=== PATIENT | female | born 1955 | race Asian ===

== ENCOUNTER → 2019-12-20 10:26 | Outpatient (CLI) | payer MEDICARE, BC, SELFPAY ==
--- NOTE | 2019-12-20 | DI.CT.S_ITS ---
PROCEDURE: CT UE RT WO CON INDICATIONS: Colles' fracture of right radius, initial encounte TECHNIQUE: Noncontrast 1 mm axial sections acquired through the carpal bones, with coronal and sagittal reformats. COMPARISON: [facility] [place] Adams, CR, XR WRIST 3+ VIEWS RIGHT, 12/13/2019, 11:15. [facility] [place], CR, XR WRIST 3+ VIEWS RIGHT, 11/29/2019, 13:48. FINDINGS: Image quality: Excellent. Bones: Diffuse osteopenic appearance. Comminuted fracture of the distal radial metaphysis with extension to the articular surface. Prominent displaced and rotated fracture fragment seen on image 51/4 measuring 7 mm. There is articular surface incongruity with diastasis measuring up to 4 mm. There is minimal articular surface step-off probably 2 mm or less. Ulnar styloid appears intact. Distal radioulnar joint degeneration. Probable loss of the normal volar angulation of the distal radial articular surface is better appreciated on the comparison radiographs. Soft tissues: Visualized flexor and extensor tendons grossly unremarkable. Associated soft tissue swelling. IMPRESSION: Comminuted distal radial metaphyseal fracture as detailed above Dictated by: Kishor Salomon M.D. on 12/21/2019 at 8:05 Approved by: Kishor Salomon M.D. on 12/21/2019 at 8:11
== END ==
PROVIDERS: PCP Family Medicine; Referring Provider Orthopaedic Surgery Adult Reconstructive Orthopaedic Surgery; Visit Provider Orthopaedic Surgery Adult Reconstructive Orthopaedic Surgery
DX: S52.531A Colles' fracture of right radius, initial encounter for closed fracture (principal); X58.XXXA Exposure to other specified factors, initial encounter
CPT/HCPCS: 73200

== ENCOUNTER → 2023-11-16 08:55 | Outpatient (CLI) | payer MEDICARE, BC, SELFPAY ==
[2023-11-16 19:52] LABS: Alanine Aminotransferase 21 IU/L (<35); Albumin 4.1 g/dL (3.5-5.0); Albumin Globulin Ratio 1.4 (1.0-2.8); Alkaline Phosphatase 72 U/L (38-126); Aspartate Aminotransferase 29 IU/L (14-36); BUN Creatinine Ratio 27.5 (6-22); Bilirubin Total 0.7 mg/dL (0.2-1.3); Blood Urea Nitrogen 14 mg/dL (7-17); Calcium 9.3 mg/dL (8.4-10.2); Carbon Dioxide 26 mmol/L (22-32); Chloride 99 mmol/L (98-107); Cholesterol 245 mg/dL (140-199); Estimated Glomerular Filt Rate > 60 mL/min (>60); Globulin 2.9 g/dL (1.7-4.1); Glucose 97 mg/dL (80-110); HDL Cholesterol 69 mg/dL (40-60); HEMOLYSIS < 15 (0-50); LDL Cholesterol Calculated 160 mg/dL (<100); Potassium 4.1 mmol/L (3.4-5.1); Sodium 132 mmol/L (137-145); Triglycerides 81 mg/dL (35-150)
== END ==
PROVIDERS: PCP Family Medicine; Visit Provider Family Medicine
DX: Z13.1 Encounter for screening for diabetes mellitus (principal); Z13.6 Encounter for screening for cardiovascular disorders; Z13.0 Encounter for screening for diseases of the blood and blood-forming organs and certain disorders involving the immune mechanism
CPT/HCPCS: 80053; 80061

== ENCOUNTER → 2023-11-30 14:15 | Outpatient (CLI) | payer MEDICARE, BC, SELFPAY ==
--- NOTE | 2023-11-30 14:18 | DI.RAD.S_ITS ---
Bone Density Report Name: OLGA BYRD Age: 68 Sex: Female Ethnicity: Date of : 1955 Indication: postmenopausal; screening for osteoporosis; Referring Provider: BHARATI GRANADOS Study: Bone densitometry was performed. Exam Date: November 30, 2023 Accession number: [id number] Bone Density: Region BMD T-score Z-score Classification AP Spine(L1-L4) 0.769 -2.5 -0.4 Osteoporosis Femoral Neck (Left) 0.539 -2.8 -1.0 Osteoporosis Total Hip (Left) 0.674 -2.2 -0.7 Osteopenia Femoral Neck (Right) 0.473 -3.4 -1.6 Osteoporosis Total Hip (Right) 0.617 -2.7 -1.1 Osteoporosis Total Hip Mean 0.646 -2.5 -0.9 Osteopenia World Health Organization criteria for BMD impression classify patients as: Normal (T-score at or above -1.0), Osteopenia (T-score between -1.0 and -2.5), or Osteoporosis (T-score at or below -2.5). 10-year Fracture Risk: FRAX not reported because: Some T-score for Spine Total or Hip Total or Femoral Neck at or below -2.5 Impression: The patient has osteoporosis, based on the Right Femoral Neck T-score. Discussion: INCREASED RISK OF FRACTURE. BONE DENSITY IS UNDESIRABLY LOW AT ONE OR MORE SKELETAL SITES, CONSISTENT WITH POSTMENOPAUSAL OSTEOPOROSIS. This patient's lowest T-score meets the World Health Organization's (WHO) criteria for osteoporosis at one or more sites (T-score -2.5 or below). In untreated patients, the risk of osteoporotic fracture increases approximately two-fold for each 1.0 SD decrease in T-score. Low bone density is not the only risk factor for fracture; also consider factors such as patient's age, frailty or poor health, risk of falling, risk of injury, previous osteoporotic fracture, family history of osteoporosis, cigarette smoking, low body weight, etc. Not everyone with low bone mineral density has osteoporosis; osteomalacia and other metabolic bone disorders should also be considered. Patients who have osteoporosis should be evaluated for specific diseases and conditions (secondary causes) that may cause or contribute to bone loss. The [place] Association [employer] Clinical Endocrinologists (AACE) and National Osteoporosis Foundation (NOF) recommend pharmacologic intervention for all postmenopausal women whose T-score is in this range. The patient should follow a healthful lifestyle (good nutrition with adequate calcium and vitamin D, and appropriate weight-bearing exercise). Follow-Up: Consider a repeat BMD and Vertebral Fracture Assessment (VFA) exam in 2 years or sooner if medically necessary, to reassess this patient's status. Reported by: MICHELLE PONCE M.D. on 11/30/2023 2:43:00 PM.
--- NOTE | 2023-11-30 14:18 | DI.MG.S_ITS ---
BILATERAL DIGITAL SCREENING MAMMOGRAM 3D/2D WITH CAD: 11/30/2023 CLINICAL: Routine screening. Comparison is made to exams dated: 12/29/2018 mammogram, 03/03/2013 mammogram, and 02/05/2012 mammogram - [facility]. Both breasts are extremely dense, which lowers the sensitivity of mammography (category d />75% glandular tissue). Current study was also evaluated with a Computer Aided Detection (CAD) system. No significant masses, calcifications, or other findings are seen in either breast. There has been no significant interval change. IMPRESSION: NEGATIVE There is no mammographic evidence of malignancy. A 1 year screening mammogram is recommended. Based on the Tyrer Cuzick model (a risk assessment model) the patient's lifetime risk is 12.7% and her 10 year risk is 8.1%. According to the ACR, ACS, and NCCN guidelines, an annual breast MRI exam along with mammogram is recommended if the patient's lifetime risk is 20% or greater. This exam was interpreted at Station ID: [id number]. NOTE: For mammograms, a report in lay terms will be sent to the patient. Approximately 15% of breast malignancies will not be visualized mammographically. In the management of a palpable breast mass, a negative mammogram must not discourage biopsy of a clinically suspicious lesion. Electronically Signed By: Clinton fregoso/elpidio:11/30/2023 19:08:01 letter sent: Normal Exam ACR BI-RADS Category 1: Negative [id number]
== END ==
PROVIDERS: PCP Family Medicine; Referring Provider Family Medicine; Visit Provider Family Medicine
DX: R92.343 Mammographic extreme density, bilateral breasts (principal); Z12.31 Encounter for screening mammogram for malignant neoplasm of breast; M81.0 Age-related osteoporosis without current pathological fracture; Z78.0 Asymptomatic menopausal state
CPT/HCPCS: 77063; 77067; 77080

== ENCOUNTER → 2023-12-16 11:58 | Outpatient (CLI) | payer MEDICARE, BC, SELFPAY ==
[2023-12-16 19:10] LABS: Add Manual Diff / Slide Review NO; Basophils Absolute Auto 0 /uL (0-100); Basophils Percent Auto 0.4 % (0-2); Eosinophils Absolute Auto 0 /uL (0-450); Eosinophils Percent Auto 0.9 % (2-4); Hematocrit 43.5 % (36-46); Hemoglobin 14.7 g/dL (12.0-16.0); Lymphocytes Absolute Auto 900 /uL (1100-4500); Lymphocytes Percent Auto 20.7 % (25-40); Mean Corpuscular HGB Conc 33.8 % (30-36); Mean Corpuscular Hemoglobin 29.9 PG (26-34); Mean Corpuscular Volume 88.5 fL (80-100); Monocytes Absolute Auto 300 /uL (0-900); Neutrophils Absolute Auto 3200 /uL (1500-7000); Platelet Count 222 X10^3/uL (150-400); Red Blood Cell Count 4.92 X10^6/uL (4.0-5.2); Red Cell Distribution Width 13.1 % (11.6-14.8); White Blood Cell Count 4.6 X10^3/uL (4.5-11.0)
[2023-12-16 19:18] LABS: BUN Creatinine Ratio 30.4 (6-22); Blood Urea Nitrogen 14 mg/dL (7-17); Calcium 9.7 mg/dL (8.4-10.2); Carbon Dioxide 30 mmol/L (22-32); Chloride 97 mmol/L (98-107); Estimated Glomerular Filt Rate > 60 mL/min (>60); Glucose 83 mg/dL (80-110); HEMOLYSIS 15 (0-50); Potassium 3.8 mmol/L (3.4-5.1); Sodium 135 mmol/L (137-145)
[2023-12-16 19:40] LABS: TSH w/ Reflex to FT4 3.44 uIU/mL (0.47-4.68)
[2023-12-16 19:59] LABS: Vitamin D 25 Hydroxy (D3) 22.5 ng/mL (30.0-100.0)
== END ==
PROVIDERS: PCP Family Medicine; Visit Provider Family Medicine
DX: E87.1 Hypo-osmolality and hyponatremia (principal); M81.0 Age-related osteoporosis without current pathological fracture; R03.0 Elevated blood-pressure reading, without diagnosis of hypertension
CPT/HCPCS: 80048; 82306; 84443; 85025

== ENCOUNTER → 2024-01-04 10:27 | Outpatient (CLI) | payer MEDICARE, BC, SELFPAY ==
--- NOTE | 2024-01-04 10:28 | DI.US.S_ITS ---
PROCEDURE: US ABD AORTA ANEURYSM SCREEN INDICATIONS: FAMILY HISTORY OF AORTIC ANEURYSM TECHNIQUE: Real time scanning was performed of the aorta and iliac arteries, with image documentation. COMPARISON: None. FINDINGS: Aorta: Proximal aortic diameter measures 2.0 cm. Mid-aorta measures 1.5 cm. Distal aortic diameter is 1.3 cm. Iliac arteries: Right common iliac artery measures 1.0 cm. Left common iliac artery measures 1.0 cm. IMPRESSION: Unremarkable ultrasound of the abdominal aorta Approved by: Kevin Dodd M.D. on 01/04/2024 at 19:41
== END ==
LOC: US 10:28
PROVIDERS: PCP Family Medicine; Referring Provider Family Medicine; Visit Provider Family Medicine
DX: Z13.6 Encounter for screening for cardiovascular disorders (principal); Z82.49 Family history of ischemic heart disease and other diseases of the circulatory system
CPT/HCPCS: 76706

== ENCOUNTER 2024-02-04 08:04 | Day surgery (SDC) | payer MEDICARE, BC, SELFPAY ==
[2024-02-04] MEDS: LACTATED RINGERS 1,000 ML 100 ML IV (08:15)
[2024-02-04 08:20] VITALS: BP 150/88; PULSE 89; RESP 16; TEMP 36.8; O2SAT 98
--- NOTE | 2024-02-04 08:45 | PM.HP.1 ---
History of Present Illness History of Present Illness Date Patient Seen: 02/04/24 Time Patient Seen: 08:45 Chief complaint: SDC Narrative: Vanessa is a 68-year-old woman who presents for colonoscopy. Her last colonoscopy was over 10 years ago and was normal. No family history of colon cancer. [facility] Medical History (Updated 12/13/23 @ 16:25 by Jessenia Collier MD) History of wrist fracture Wears glasses Osteopenia (~2019) Fractures (~2019) Measles (~1959) Chicken pox (~1954) Glaucoma (~2004) Heavy menstrual period (~1996) Heart murmur (~1974) Surgical History (Updated 10/07/23 @ 20:03 by Sue Chao) Anesthesia [place] teeth removed (~1968) Family History (Updated 10/07/23 @ 20:08 by Sue Chao) Father History of heart disease Hyperlipidemia Stroke Mother Lung disease Sister Hyperlipidemia Grandfather Cancer Grandmother Cancer Grandfather Stroke Alcohol abuse Grandmother Cancer Social History Smoking Status: Never smoker additional social history: etoh: 3 glasses /week tob: none lives alone since mom Moved in dec 2009 from [place] -- was getting regular paps until that time [employer]-she is 3rd generation [place] retired for 1 month: worked for [employer] FHX: no osteoporosis FHX: both parents have dad and uncle and GF -- STROKES, heart issues MOM -- HTN, BGs, PIF, AAA- had a surgery 10/2023 Meds Home Medications and Allergies Home Medications Medication Instructions Recorded Confirmed Type latanoprost 0.005 % eye drops See Rx Instructions .Route .COMPLEX 10/08/23 02/04/24 History alendronate 70 mg tablet 70 mg PO QWEEK osteoprosis, 12/10/23 02/04/24 Rx increase bone strength #12 tabs Allergies Allergy/AdvReac Type Severity Reaction Status Date / Time No Known Drug Allergies Allergy Verified 02/04/24 08:16 Exam Const General: healthy appearing Assessment & Plan Assessment and plan (1) Colon cancer screening: Status: Acute Plan We reviewed the risks and benefits of colonoscopy for colon cancer screening and she would like to proceed.
[2024-02-04 09:44] VITALS: BP 98/55; PULSE 71; RESP 15; TEMP 36.7; O2SAT 98
[2024-02-04 09:47] VITALS: BP 100/70; PULSE 66; RESP 17; O2SAT 98
--- NOTE | 2024-02-04 09:48 | PM.OP.COLON ---
Operative Date/Time/Diagnoses Date of procedure: 02/04/24 Time of procedure: 09:48 Pre-op diagnosis: Colon cancer screening Post-op diagnosis: same Procedure & Clinicians Study performed: Colonoscopy Same procedure as scheduled: Yes Surgeon: Fermin Gastelum Procedure Notes Procedure in detail: Surgeon: Fermin Gastelum MD Anesthesia: Jessenia Mcgovern CRNA Procedure: The patient was brought to the endoscopy suite, placed in left lateral decubitus position. The patient was connected to monitoring devices. A time-out was performed. Sedation was administered. Once the patient was adequately sedated, a digital rectal exam was performed and was normal. The scope was then inserted and advanced to the cecum where the appendiceal orifice was identified and photographed. The scope was then slowly withdrawn over greater than 6 minutes. The mucosa was thoroughly inspected. No abnormalities were found. The scope was retroflexed in the rectum. Mild internal hemorrhoids were noted. The scope was straightened and removed. The patient was awakened and brought to recovery. Scope withdrawal time: 7 minutes Sedation time: 16 minutes EBL: 0 Findings: Mild internal hemorrhoids Post-procedure Disposition: PACU
[2024-02-04 09:50] VITALS: BP 108/66; PULSE 68; RESP 22; O2SAT 98
[2024-02-04 09:53] VITALS: BP 112/67; PULSE 65; RESP 15; O2SAT 99
== END 2024-02-04 10:14 | disposition home or self-care (01) ==
PROVIDERS: PCP Family Medicine; Referring Provider Surgery; Visit Provider Surgery
PROC: 0DJD8ZZ Inspection of Lower Intestinal Tract, Via Natural or Artificial Opening Endoscopic (ICD-10-PCS; CPT 45378; principal; 2024-02-04 09:15)
DX: Z12.11 Encounter for screening for malignant neoplasm of colon (principal); K64.8 Other hemorrhoids
CPT/HCPCS: G0121; 93005; J2704

== ENCOUNTER → 2024-07-12 10:58 | Outpatient (CLI) | payer MEDICARE, BC, SELFPAY ==
[2024-07-12 20:38] LABS: Vitamin D 25 Hydroxy (D3) 29.2 ng/mL (30.0-100.0)
[2024-07-12 20:51] LABS: LDL Cholesterol Direct 109 mg/dL (<100)
== END ==
PROVIDERS: PCP Family Medicine; Visit Provider Family Medicine
DX: M81.0 Age-related osteoporosis without current pathological fracture (principal); E78.2 Mixed hyperlipidemia
CPT/HCPCS: 82306; 83721

== ENCOUNTER → 2024-12-05 11:33 | Outpatient (CLI) | payer MEDICARE, BC, SELFPAY ==
--- NOTE | 2024-12-05 11:34 | DI.RAD.S_ITS ---
PROCEDURE: XR DEXA AXIAL SKELETON INDICATIONS: postmenopause COMPARISON: [facility], CR, XR DEXA AXIAL SKELETON, 11/30/2023, 14:31. FINDINGS: Lumbar Spine: Bone mineral density 0.794 g/cm2, T score -2.3, previously -2.5. The lowest T-scores are -2.8 and -2.5 for the L1 and L2 vertebral bodies, respectively. Left Femoral Neck: Bone mineral density 0.565 g/cm2, T score -2.6, previously -2.8. Left Hip: Bone mineral density 0.702 g/cm2, T score -2.0, previously -2.2. Fracture Risk Calculation (when applicable): 10-year fracture risk of a major osteoporotic fracture 7.1 percent and of a hip fracture 2.0 percent. (T score greater or equal to -1.0 to: NORMAL) (T score from -1.1 to -2.4: OSTEOPENIA) (T score less than or equal to -2.5: OSTEOPOROSIS) IMPRESSION: 1. Osteopenia of the lumbar spine, although the L1 and L2 vertebral bodies are osteoporotic. 2. Osteoporosis of the left femoral neck. 3. Osteopenia of the left hip. Follow-up guidelines as follows: Osteoporosis: Consider a repeat DEXA and Vertebral Fracture Assessment (VFA) exam in 2 years or sooner if medically necessary, to reassess this patient's status. Osteopenia: Consider a repeat DEXA in 2-3 years to reassess this patient's status, or if there is a new clinical indication. Normal: Consider a repeat DEXA in 5 years or sooner, or if there is a new clinical indication. All treatment decisions require clinical judgment and consideration of individual patient factors, including patient preferences, comorbidities, previous drug use, risk factors not captured in the FRAX model (e.g., frailty, falls, vitamin D deficiency, increased bone turnover, interval significant decline in bone density ) and possible under- or over-estimation of fracture risk by FRAX. In addition, the NOF Guide recommends that FDA-approved medical therapies be considered in postmenopausal women and men age >= 50 years with a: * Hip or vertebral (clinical or morphometric) fracture * T-score of <=-2.5 at the spine or hip * Ten-year fracture probability by FRAX of >= 3% for hip fracture or >=20% for major osteoporotic fracture. Dictated by: Yeison Bryan M.D. on 12/05/2024 at 15:30 Approved by: Yeison Bryan M.D. on 12/05/2024 at 15:33
--- NOTE | 2024-12-05 11:34 | DI.MG.S_ITS ---
BILATERAL DIGITAL SCREENING MAMMOGRAM 3D/2D WITH CAD: 12/05/2024 CLINICAL: Routine screening. Comparison is made to exams dated: 11/30/2023 mammogram - [facility], 12/29/2018 mammogram, and 03/03/2013 mammogram - [facility]. The breasts are extremely dense, which lowers the sensitivity of mammography (category d />75% glandular tissue). Current study was also evaluated with a Computer Aided Detection (CAD) system. No significant masses, calcifications, or other findings are seen in either breast. There has been no significant interval change. IMPRESSION: NEGATIVE There is no mammographic evidence of malignancy. A 1 year screening mammogram is recommended. Based on the Tyrer Cuzick model (a risk assessment model) the patient's lifetime risk is 12.0% and her 10 year risk is 8.3%. According to the ACR, ACS, and NCCN guidelines, an annual breast MRI exam along with mammogram is recommended if the patient's lifetime risk is 20% or greater. This exam was interpreted at Station ID: [id number]. NOTE: For mammograms, a report in lay terms will be sent to the patient. Approximately 15% of breast malignancies will not be visualized mammographically. In the management of a palpable breast mass, a negative mammogram must not discourage biopsy of a clinically suspicious lesion. Electronically Signed By: Clinton fregoso/elpidio:12/05/2024 16:36:24 letter sent: Normal Exam ACR BI-RADS Category 1: Negative
== END ==
LOC: RAD 11:34
PROVIDERS: PCP Family Medicine; Referring Provider Family Medicine; Visit Provider Family Medicine
DX: Z12.31 Encounter for screening mammogram for malignant neoplasm of breast (principal); R92.343 Mammographic extreme density, bilateral breasts; M81.0 Age-related osteoporosis without current pathological fracture; Z78.0 Asymptomatic menopausal state; E55.9 Vitamin D deficiency, unspecified; I10 Essential (primary) hypertension; E78.2 Mixed hyperlipidemia; E87.1 Hypo-osmolality and hyponatremia
CPT/HCPCS: 77063; 77067; 77080

== ENCOUNTER → 2025-01-03 09:18 | Outpatient (CLI) | payer MEDICARE, BC, SELFPAY ==
[2025-01-03 20:17] LABS: Alanine Aminotransferase 24 IU/L (<35); Albumin 4.5 g/dL (3.5-5.0); Albumin Globulin Ratio 1.7 (1.0-2.8); Alkaline Phosphatase 52 U/L (38-126); Aspartate Aminotransferase 35 IU/L (14-36); BUN Creatinine Ratio 24.1 (6-22); Bilirubin Total 0.5 mg/dL (0.2-1.3); Blood Urea Nitrogen 13 mg/dL (7-17); Calcium 9.3 mg/dL (8.4-10.2); Carbon Dioxide 29 mmol/L (22-32); Chloride 99 mmol/L (98-107); Cholesterol 278 mg/dL (140-199); Estimated Glomerular Filt Rate > 60 mL/min (>60); Globulin 2.7 g/dL (1.7-4.1); Glucose 85 mg/dL (80-110); HDL Cholesterol 68 mg/dL (40-60); HEMOLYSIS < 15 (0-50); LDL Cholesterol Calculated 194 mg/dL (<100); Potassium 4.4 mmol/L (3.4-5.1); Sodium 134 mmol/L (137-145); Total Protein 7.2 g/dL (6.3-8.2); Triglycerides 79 mg/dL (35-150)
[2025-01-03 20:20] LABS: Add Manual Diff / Slide Review NO; Basophils Absolute Auto 0 /uL (0-100); Basophils Percent Auto 0.6 % (0-2); Eosinophils Absolute Auto 100 /uL (0-450); Eosinophils Percent Auto 1.6 % (2-4); Hematocrit 45.5 % (36-46); Hemoglobin 15.2 g/dL (12.0-16.0); Lymphocytes Absolute Auto 1100 /uL (1100-4500); Lymphocytes Percent Auto 22.7 % (25-40); Mean Corpuscular HGB Conc 33.4 % (30-36); Mean Corpuscular Hemoglobin 30.1 PG (26-34); Mean Corpuscular Volume 90.2 fL (80-100); Monocytes Absolute Auto 300 /uL (0-900); Neutrophils Absolute Auto 3300 /uL (1500-7000); Neutrophils Percent Auto 69.1 % (50-75); Platelet Count 233 X10^3/uL (150-400); Red Blood Cell Count 5.04 X10^6/uL (4.0-5.2); Red Cell Distribution Width 13.6 % (11.6-14.8); White Blood Cell Count 4.8 X10^3/uL (4.5-11.0)
[2025-01-03 20:31] LABS: Vitamin D 25 Hydroxy (D3) 36.3 ng/mL (30.0-100.0)
[2025-01-03 20:45] LABS: Thyroid Stimulating Hormone 2.53 uIU/mL (0.47-4.68)
== END ==
PROVIDERS: PCP Family Medicine; Visit Provider Family Medicine
DX: E55.9 Vitamin D deficiency, unspecified (principal); I10 Essential (primary) hypertension; E78.2 Mixed hyperlipidemia; E87.1 Hypo-osmolality and hyponatremia; M81.0 Age-related osteoporosis without current pathological fracture
CPT/HCPCS: 80053; 80061; 82306; 84443; 85025

== ENCOUNTER → 2025-03-23 08:59 | Outpatient (CLI) | payer MEDICARE, BC, SELFPAY ==
[2025-03-23 19:17] LABS: Cholesterol 232 mg/dL (140-199); HDL Cholesterol 59 mg/dL (40-60); LDL Cholesterol Calculated 162 mg/dL (<100); Triglycerides 56 mg/dL (35-150)
== END ==
LOC: LAB 08:59
PROVIDERS: PCP Family Medicine; Visit Provider Family Medicine
DX: E78.2 Mixed hyperlipidemia (principal)
CPT/HCPCS: 80061